=== PATIENT | male | born 1980 | race Two or more races ===

== ENCOUNTER 2019-12-01 09:09 | Emergency (ER) | payer OTHER ==
[~2019-12-01] VITALS: Ht 177.8 cm; Wt 73.0 kg
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
[2019-12-01] MEDS ORDERED: TDAP [DIPH/PERTUSSIS/TET] 0.5 ML VIAL IM ONE ×2 (09:41→10:00)
--- NOTE | 2019-12-01 09:41 | NUR ---
picked-upby Rep via [facility] for ct scan.
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
[2019-12-01 11:31] VITALS: BP 127/89
== END 2019-12-01 11:18 ==
LOC: ER 09:09
DX: S01.01XA Laceration without foreign body of scalp, initial encounter (principal); S61.512A Laceration without foreign body of left wrist, initial encounter; Y00.XXXA Assault by blunt object, initial encounter; Y93.89 Activity, other specified; Y92.89 Other specified places as the place of occurrence of the external cause; Y99.8 Other external cause status
CPT/HCPCS: 12002; 70450; 73110; 73130; 90471; 90715; 99284; A6403